=== PATIENT | female | born 1955 | race Two or more races ===

== ENCOUNTER 2018-12-10 23:55 | Inpatient (IN) | payer MEDICAID ==
[~2018-12-10] VITALS: Ht 157.5 cm; Wt 88.0 kg
--- NOTE | 2018-12-11 00:10 | NUR ---
Patient ambulated with stable gait. [place] Verdean speaking only. A/Ox4. Speech is clear, speaks in complete sentences. No neuro deficits. Patient came for intermittent left chest pain wall since AM with palpitations and chill. Respiratory even and unlabored, no cough no sob.No GI/ distress noted. Patient has friends at bedside. Patient in bed at lowest position, sr upx2, call light within reach. Fall precautions implemented per protocol.
[2018-12-11] MEDS ORDERED: ASPIRIN 81 MG TAB.CHEW PO ONE (00:30)
[2018-12-11] MEDS ORDERED: ASPIRIN 81 MG TAB.CHEW ONE (00:45)
[2018-12-11 00:53] LABS: BASOPHILS # (AUTO) 0.1 K/uL (0.0-8.0); BASOPHILS % (AUTO) 0.3 % (0.0-2.0); EOSINOPHILS # (AUTO) 0.1 K/uL (0.0-0.7); EOSINOPHILS % (AUTO) 0.3 % (0.0-7.0); HEMATOCRIT 35.8 % (31.2-41.9); HEMOGLOBIN 11.6 g/dL (10.9-14.3); LYMPHOCYTES # (AUTO) 15.4 K/uL (20.0-40.0); MEAN CORPUSCULAR HEMOGLOBIN 29.5 uug (24.7-32.8); MEAN CORPUSCULAR HGB CONC 32 g/dL (32.3-35.6); MEAN CORPUSCULAR VOLUME 91.2 fL (75.5-95.3); MONOCYTES # (AUTO) 0.5 K/uL (2.0-10.0); MONOCYTES % (AUTO) 2.4 % (0.0-11.0); NEUTROPHILS # (AUTO) 3.8 K/uL (1.8-8.9); PLATELET COUNT (AUTO) 137 K/uL (179-408); RED BLOOD CELL COUNT(AUTO) 3.92 MIL/uL (3.63-4.92); WHITE BLOOD COUNT (AUTO) 19.8 K/uL (3.8-11.8)
[2018-12-11 00:59] LABS: CREATININE 0.8 mg/dL (0.6-1.3); POTASSIUM 3.8 mmol/L (3.5-5.1)
[2018-12-11 01:11] LABS: BILIRUBIN,DIRECT 0.1 mg/dL (0.0-0.2); BILIRUBIN,TOTAL 0.4 mg/dL (0.2-1.0); TOTAL PROTEIN, SERUM 7.3 g/dL (6.4-8.2)
--- NOTE | 2018-12-11 01:32 | NUR ---
Lisbeth Gray, [facility] admitting team, has been paged. Awaiting call back.
--- NOTE | 2018-12-11 02:10 | NUR ---
Lisbeth Gray NP on the line with Dr. Curran
--- NOTE | 2018-12-11 02:24 | NUR ---
Report given to KARISHMA Emmanuel
--- NOTE | 2018-12-11 02:30 | NUR ---
Patient transferred to [facility] in stable condition.
--- NOTE | 2018-12-11 02:35 | NUR ---
Received patient from ED via wheelchair accompanied by KARISHMA Dale. patient was able to transfer to the bed on her own. Patient is alert and oriented x 4, honduran speaking only. No complaints at the moment. Oriented to unit with help of honduran speaking PRINCIPAL STATISTICAL SCIENTIST. Bed in low position, locked, side rails up x2 for safety. Noise and lights subdued. Will continue to monitor.
[2018-12-11 03:11] VITALS: BP 94/50
[2018-12-11] MEDS ORDERED: HYDROCODONE/APAP 5-325MG TABLET PO PRN (03:30)
[2018-12-11] MEDS ORDERED: MAGNESIUM HYDROXIDE 30 ML LIQUID UDC PO PRN (03:30)
[2018-12-11] MEDS ORDERED: ONDANSETRON 4 MG/2 ML VIAL IV PRN (03:30)
[2018-12-11] MEDS ORDERED: ACETAMINOPHEN 325 MG TABLET PO PRN (03:30)
[2018-12-11] MEDS ORDERED: ZOLPIDEM 5 MG TABLET PO PRN (03:30)
[2018-12-11] MEDS ORDERED: Z GUARD REMEDY PASTE 57 GM TUBE TOP PRN (03:30)
[2018-12-11 04:05] VITALS: BP 99/35
[2018-12-11 04:36] LABS: BAND % (MANUAL) 1 % (0-10); LYMPHOCYTES % (MANUAL) 78 % (20-40); MONOCYTES % (MANUAL) 1 % (2-10); NEUTROPHILS % (MANUAL) 16 % (42-75)
[2018-12-11] MEDS: CEFTRIAXONE 1 G in IV DEXTROSE 5% 50 ML IV SCH (05:00)
[2018-12-11] MEDS ORDERED: CEFTRIAXONE 1 G VIAL ONE (05:08)
--- NOTE | 2018-12-11 05:49 | NUR ---
Patient slept well, no complaints made. Patient instructed about urine sample collection for urinalysis. Attended all needs. Ensured safety and comfort.
[2018-12-11 07:28] LABS: BASOPHILS # (AUTO) 0.1 K/uL (0.0-8.0); BASOPHILS % (AUTO) 0.5 % (0.0-2.0); EOSINOPHILS % (AUTO) 0.2 % (0.0-7.0); HEMATOCRIT 35.5 % (31.2-41.9); HEMOGLOBIN 11.5 g/dL (10.9-14.3); LYMPHOCYTES # (AUTO) 13.6 K/uL (20.0-40.0); LYMPHOCYTES % (AUTO) 77.7 % (20.5-51.5); MEAN CORPUSCULAR HEMOGLOBIN 29.5 uug (24.7-32.8); MEAN CORPUSCULAR HGB CONC 32 g/dL (32.3-35.6); MEAN CORPUSCULAR VOLUME 91.5 fL (75.5-95.3); MONOCYTES # (AUTO) 0.5 K/uL (2.0-10.0); MONOCYTES % (AUTO) 2.6 % (0.0-11.0); NEUTROPHILS # (AUTO) 3.3 K/uL (1.8-8.9); PLATELET COUNT (AUTO) 137 K/uL (179-408); RED BLOOD CELL COUNT(AUTO) 3.88 MIL/uL (3.63-4.92); WHITE BLOOD COUNT (AUTO) 17.5 K/uL (3.8-11.8)
--- NOTE | 2018-12-11 07:30 | NUR ---
AWAKE ALERT AND ORIENTED DENIES CHEST PAIN OR DISCOMFORTS AT THIS TIME REMAIN ON TELE MONITORING WITH NO ECTOPY NOTED MADE COMFORTABLE AND WILL CONTINUE TO OBSERVE.
[2018-12-11 07:37] LABS: CREATININE 0.7 mg/dL (0.6-1.3); MAGNESIUM 2.3 mg/dL (1.8-2.4); PHOSPHOROUS 4.5 mg/dL (2.5-4.9); POTASSIUM 3.8 mmol/L (3.5-5.1)
[2018-12-11 07:54] LABS: *BILIRUBIN,URIN NEGATIVE (NEGATIVE); *BLOOD, URINE NEGATIVE (NEGATIVE); *CLARITY,URINE CLEAR (CLEAR); *COLOR,URINE YELLOW (YELLOW); *KETONES,URINE NEGATIVE (NEGATIVE); *UROBILINOGEN,URINE 0.2 E.U./dl (NORMAL); LEUKOCYTE ESTERASE ,URINE TRACE (NEGATIVE); NITRITE, URINE NEGATIVE (NEGATIVE); PH,URINE 6.5 (5.0-8.0); UGLUCOSE NEGATIVE (NEGATIVE)
[2018-12-11 08:04] LABS: RBC,URINE 0-3 /HPF (0-3); WBC,URINE 0-3 /HPF (0-3)
[2018-12-11 08:05] LABS: BACTERIA,URINE NONE SEEN /HPF (NONE SEEN); SQUAMOUS EPITHELIAL CELL,UR FEW /HPF (NONE SEEN)
[2018-12-11] MEDS: ENOXAPARIN SODIUM 40 MG/0.4 ML DISP.SYRIN SQ SCH (08:58)
[2018-12-11] MEDS ORDERED: ASPIRIN 81 MG TAB.CHEW PO SCH (09:00)
[2018-12-11 09:24] LABS: BASOPHILS % (MANUAL) 1 % (0-2); LYMPHOCYTES % (MANUAL) 79 % (20-40); MONOCYTES % (MANUAL) 2 % (2-10); NEUTROPHILS % (MANUAL) 18 % (42-75)
[2018-12-11] MEDS ORDERED: SWABABLE VALVE TRANSFER SET EA MC ONE (11:28)
[2018-12-11] MEDS ORDERED: IOPAMIDOL 15 ML VIAL IT ONE (11:28)
[2018-12-11] MEDS ORDERED: IOHEXOL 300MG/ML 100 ML INFUS..BTL ONE (11:28)
[2018-12-11 12:09] VITALS: BP 107/55
--- NOTE | 2018-12-11 12:45 | NUR ---
CT OF ABDOMEN AND PELVIS COMPLETED ORDERED.PATIENT IS SEATING ON THE CHAIR EATING HER LUNCH AT THIS TIME.
[2018-12-11 15:50] VITALS: BP 113/65
--- NOTE | 2018-12-11 17:24 | NUR ---
RESTING TOLERATING HER DIET ORDERED DENIES CHEST PAIN AT THIS TIME WILL CONTINUE TO OBSERVE.
--- NOTE | 2018-12-11 19:20 | NUR ---
Received patient lying in bed. AAOx4. Namibian speaking only. In no acute distress. Complained of mild headache, will give Tylenol 650mg per order. Denies any SOB. NSR on tele at 66/min. IV site on right hand intact and patent. Safety measure initiated and call gonzales within reach.
[2018-12-11 20:02] VITALS: BP 108/62
[2018-12-11] MEDS ORDERED: ATORVASTATIN 20 MG TABLET PO SCH (21:00)
[2018-12-12 00:20] VITALS: BP 106/67
[2018-12-12] MEDS: CEFTRIAXONE 1 G in IV DEXTROSE 5% 50 ML IV SCH (03:03)
[2018-12-12 04:05] VITALS: BP 119/68
--- NOTE | 2018-12-12 06:12 | NUR ---
AAOx4. Slept well last night. In no acute distress. Denies any further headache. Denies any SOB. NSR on tele at 62/min. No adverse effect noted from IV ABX. IV site on right hand intact and patent. Safety measure maintained and call gonzales within reach.
[2018-12-12 06:53] LABS: THYROID STIMULATING HORMONE 1.289 mIU/mL (0.358-3.740)
--- NOTE | 2018-12-12 07:15 | NUR ---
ALERT ORIENTED MOSTLY NEPALI SPEAKING DENIES PAIN OR DISCOMFORTS AT THIS TIME ON ROOM AIR WITH NO SHORTNESS OF BREATH AT THIS TIME CALL LIGHTS AND PERSONAL BELONGINGS PLACED WITHIN EASY REACH TELE IS SR WITH NO ECTOPY MADE COMFORTABLE AND WILL CONTINUE TO OBSERVE.
[2018-12-12 07:52] LABS: *RHEUMATOID FACTOR SCREEN NEGATIVE (NEGATIVE)
[2018-12-12] MEDS: ENOXAPARIN SODIUM 40 MG/0.4 ML DISP.SYRIN SQ SCH (08:50)
[2018-12-12 11:25] VITALS: BP 101/54
--- NOTE | 2018-12-12 14:48 | NUR ---
CT CHEST COMPLETED ORDERED AND TELEMETRY DISCONTINUE.PATIENT IS RESTING IN ROOM WITH NO C/O AT THIS TIME
[2018-12-12 16:22] VITALS: BP 98/58
[2018-12-12] MEDS ORDERED: OMEP20TA20 PO (16:47)
--- NOTE | 2018-12-12 17:24 | NUR ---
ORDER TO DISCHARGE PATIENT HOME RECEIVED AND NOTED PER THE WILD [employer] MANAGER LIFESTYLE CONSULTANT STATED THAT PATIENTS DAUGHTER THERESE WILL PICK HER UP AT 6PM TODAY.
--- NOTE | 2018-12-12 17:30 | NUR ---
DISCHARGE INSTRUCTIONS GIVEN TO PATIENT SON AT THE BEDSIDE BUT STATED WAITING FOR HER DAUGHTER ZAFAR.PATIENT INSTRUCTED TO CALL FOR A FOLLOW UP APPOINTMENT WITH HER PRIMARY DOCTOR FOR A STRESS TEST AND HER FILLER OPERATOR TO FOLLOW UP ON PLATELETS LEVEL AND SHE EXPRESSED UNDERSTAND.
--- NOTE | 2018-12-12 19:15 | NUR ---
PATIENTS DAUGHTER HERE AND PATIENT DISCHARGED WITH HER DAUGHTER WITH ALL HER BELONGINGS IN SATISFACTORY CONDITION
[2018-12-13 20:08] LABS: *ANTI-SCLERODERMA-70 AB <0.2 AI (0.0-0.9); *SJOGREN'S ANTI-SS-A <0.2 AI (0.0-0.9); *SJOGREN'S ANTI-SS-B <0.2 AI (0.0-0.9); *SMITH ANTIBODIES <0.2 AI (0.0-0.9); ANTI-DNA(DS) AB, QN 3 IU/mL (0-9)
== END 2018-12-12 19:21 | disposition home or self-care (01) | DRG 241 ==
LOC: ER 23:57 → TELE3 12-11 02:23 → MEDSURG3 12-12 13:44
PROVIDERS: ADMIT Nurse Practitioner Acute Care; ATTEND Internal Medicine
DX: K29.70 Gastritis, unspecified, without bleeding (principal); D69.6 Thrombocytopenia, unspecified; E87.0 Hyperosmolality and hypernatremia; K21.9 Gastro-esophageal reflux disease without esophagitis; D72.820 Lymphocytosis (symptomatic); E66.9 Obesity, unspecified; F10.11 Alcohol abuse, in remission; Y90.9 Presence of alcohol in blood, level not specified; Z68.35 Body mass index [BMI] 35.0-35.9, adult; M19.90 Unspecified osteoarthritis, unspecified site; K57.90 Diverticulosis of intestine, part unspecified, without perforation or abscess without bleeding; R00.0 Tachycardia, unspecified; I51.7 Cardiomegaly; R16.2 Hepatomegaly with splenomegaly, not elsewhere classified; R73.03 Prediabetes
CPT/HCPCS: 36415; 70030-TC; 71045; 71250; 82747; 83690; 83735; 84100; 84443; 85014; 85025; 85651; 85730; 86038; 86430; 86706; 86803; 87086; 87340; 87806; 93005; 93307; A4663; G0378; J0696; J1650; J7050; J7060; Q9967